=== PATIENT | female | born 1975 | race Caucasian/White ===

== ENCOUNTER 2018-10-23 08:25 | Inpatient (IN) | payer OTHER ==
[2018-10-22 09:35] LABS: BASOPHILS 0.3 % (0-2); EOSINOPHILS 0.8 % (0-7); HEMATOCRIT 41.5 % (36.0-48.0); HEMOGLOBIN 14.1 g/dL (12-16); IMMATURE GRANULOCYTES 0.1 % (0-5); LYMPHOCYTES 19.4 % (15-50); MCH 29.7 pg (26.0-34.0); MCV 87.4 fL (80.0-100.0); MEAN PLATELET VOLUME 10.8 fL (7.4-10.4); MONOCYTES 7.7 % (2-11); NEUTROPHILS 71.7 % (40-80); PLATELET COUNT 361 10x3/uL (130-400); RBC 4.75 10x6/uL (4.00-5.40); RDW 13.9 % (11.5-14.5); WBC 10.1 10x3/uL (4.8-10.8)
[2018-10-22 10:01] LABS: CALC OSMOLALITY 280 mosm/kg (275-300); CALCIUM 8.6 mg/dL (8.5-10.1); CARBON DIOXIDE 29.6 mmol/L (21.0-32.0); CHLORIDE - SERUM 103 mmol/L (98-107); CREATININE - SERUM 0.7 mg/dL (0.6-1.3); GLUCOSE 92 mg/dL (74-106); POTASSIUM - SERUM 4.1 mmol/L (3.5-5.1); SODIUM 141 mmol/L (136-145); UREA NITROGEN 13 mg/dL (7-18); eGFR NON AFRICAN AMERICAN > 90 mL/min (90-120)
[~2018-10-23] VITALS: Ht 157.5 cm; Wt 102.3 kg
[~2018-10-23 08:25] MED LIST: CARBINOXAMINE MALEAT PO; CELEXA20 MG PO; NORVASC10 MG PO
[2018-10-23 09:24] VITALS: BP 129/80; BMI 41.8
[2018-10-23 10:12] LABS: HCG URINE NEGATIVE (NEGATIVE)
--- NOTE | 2018-10-23 17:40 | NUR ---
[address] DR. RUT MEJIA.
--- NOTE | 2018-10-23 17:50 | NUR ---
1750 PERCOCET 10MG GIVEN FOR PAIN. PT STATES SHE HAS TAKEN THIS BEFORE SHE "USED TO TAKE THIS TO CONTROL HER CRAMPS".
--- NOTE | 2018-10-23 19:57 | NUR ---
1950 PT STILL SITTING ON TOILET, STATES HAS AN URGE BUT NOT ABLE TO VOID YET.
[2018-10-23 20:56] VITALS: BP 153/74
--- NOTE | 2018-10-23 20:56 | NUR ---
RECEIVED PT PER PT BED, PT STANDS AND TRANSITIONS SELF TO PT BED, PULSE OX 96% WITH PT ENCOURAGED TO TAKE DEEP BREATHS, SKIN WARM DRY, COLOR WNL, RESP EVEN AND UNLABORED, LUNGS CTAB, HEART RRR, ABD SOFT BUT TENDER, DENIES FLATUS, HYPOACTIVE BOWEL SOUNDS X4 QUADRANTS, NO VAGINAL BLEEDING NOTED, INCISIONS TO RIGHT ABD, LEFT ABD, AND UMBILICAL INCISIONS CONVERED WITH 1X1 ADHESIVE DRESSING, NO DRAINAGE NOTED, LOW TRANSVERSE INCISION INTACT WITH OCCLUSIVE WHITE DRESSING OLD DRAINAGE NOTED AND MARKED WITH PEN, PT UNABLE TO VOID AT THIS TIME, ADMIT ASSESSMENT INITIATED, CORREA FREELY, NEGATIVE [place]'S SIGN, NO EDEMA NOTED TO EXTREMITIES, PEDAL PULSES 2+/= B. IV TO RIGHT UPPER FA PATENT AND SET TO IVAC PUMP INFUSING LR AT 125ML/HR. LEMON NULATO SODA PROVIDED UPON REQUEST. CALL LIGHT/ROOM/TV/UNIT ORIENATION PROVIDED, QUESTIONS ANSWERED. CONTINUE TO MONITOR.
[2018-10-23 21:05] VITALS: BP 153/74; Ht 157.5 cm; Wt 102.3 kg
[2018-10-23] MEDS ORDERED: MULTI-DAY VITAM1 TAB PO (21:05)
--- NOTE | 2018-10-23 21:35 | NUR ---
PT UP TO BR PER ISAIAS PEREIRA RN
--- NOTE | 2018-10-23 21:44 | NUR ---
THIS RN TO ROOM, PT UNABLE TO VOID AT THIS TIME, REQUESTS TO SIT ON COMMODE JUST A LITTLE BIT LONGER, TALKED TO PT OF THE POSSIBILITY OF HAVING TO DO AN IN/OUT CATH, PT STATES "I'M NOT DOING THAT", EXPLAINED TO PT THE REASON FOR IT, PT STILL REFUSES
--- NOTE | 2018-10-23 21:57 | NUR ---
THIS RN TO ROOM, PT STILL UNABLE TO VOID, I KNOW MORE ASKED HER ABOUT HER VOIDING, AND PT STATES "I AM NOT DOING A CATHETER!!", INFORMED PT THAT I WILL TALK TO DR BETTENCOURT, PT VERBALIZES UNDERSTANING, PT REQUESTS TO AMB FOR A FEW MINUTES, REPORTS BINDER IS ON
--- NOTE | 2018-10-23 22:00 | NUR ---
DR BETTENCOURT ON UNIT, REPORT TO HER THAT PT IS UNABLE TO VOID, DR BETTENCOURT WRITES ORDERS FOR LASIX
--- NOTE | 2018-10-23 22:02 | NUR ---
PT INFORMED OF DR JUAN RAMON CALIX
--- NOTE | 2018-10-23 22:03 | NUR ---
PT AMB IN [place], GAIT STEADY, S/O AT SIDE
--- NOTE | 2018-10-23 22:12 | NUR ---
PT CONTINUES TO AMB IN [place], DR BETTENCOURT IN [place] AT THIS TIME, TALKS TO PT ABOUT THE POSSIBILITY OF DOING A CATHETER, PT VERBALIZES UNDERSTANDING, PT STILL UNDECIDED ABOUT HAVING IT DONE IF NEEDED
--- NOTE | 2018-10-23 22:20 | NUR ---
PT BACK IN ROOM, SITTING ON COMMODE, PT INST TO USE CALL LIGHT WHEN BACK TO BED AND THAT I WILL ADM MEDS AT THAT TIME, PT VERBALIZES UNDERSTANDING, DENIES NEEDS AT THIS TIME, S/O AT IN ROOM
[2018-10-23 22:32] VITALS: BP 144/78
--- NOTE | 2018-10-23 22:32 | NUR ---
PT BACK IN BED, ADM MEDS PER MD ORDERS, SEE EMAR, BP OBTAINED, FRESH H20 SERVED, DENIES FURTHER NEEDS, BED IN LOW POSITION, SIDE RAILS X 2, CALL LIGHT IN REACH, S/O AT BEDSIDE
--- NOTE | 2018-10-23 23:31 | NUR ---
PM ROUNDS MADE, PT UP IN BR AT THIS TIME, ICE PACK PROVIDED, PLACED ON BEDSIDE TABLE FOR PT, PT INST TO USE CALL LIGHT FOR ANY ASSISTANCE, PT VERBALIZES UNDERSTANDING, DENIES FURTHER NEEDS, BEDDING PROVIDED TO S/O
--- NOTE | 2018-10-24 00:05 | NUR ---
PT UNABLE TO VOID, SLOWLY POSITIONED TO RECUMBENT POSITION, EXPLAINED PROCEDURE TO PT, COOL CLOTH TO PT FOREHEAD WITH PT C/O ANXIETY WITH NEEDED IN AND OUT CATHETER. IN AND OUT CATHETER PROCEDURE PERFORMED WITH Rudolph SOMMERS RN ASSIST, EMPTIED 100ML CONCENTRATED YELLOW URINE FROM BLADDER, REPOSITIONED PT TO COMFORT, PROVIDED PT PO FLUIDS AND ENCOURAGED TO DRINK TOLERATED. CALL LIGHT IN EASY REACH. CONTINUE TO MONITOR.
--- NOTE | 2018-10-24 00:34 | NUR ---
PAGED DR BETTENCOURT TO REPORT 100ML URINE OUTPUT SINCE HODGE CATHETER DC'D AT 1730 IN OUTPATIENT RR.
--- NOTE | 2018-10-24 00:40 | NUR ---
RETURN CALL FROM DR BETTENCOURT, RELAYED 100ML TOTAL URINE OUTPUT AFTER IN AND OUT CATH AFTER SIX HOURS SINCE HODGE DC'D IN OUTPATIENT RECOVERY. NEW ORDER RECEIVED TO BOLUS 2L OF LR NOW, VERIFIED VIA TORB, NOTED, AND RELAYED TO PT. PT STATES UNDERSTANDING.
--- NOTE | 2018-10-24 02:01 | NUR ---
PT ROUSES TO VERBAL STIMULI ON ENTRY TO ROOM, IVAC ALARMING TO NOTIFY THIS RN OF 1ST LITER LR BOLUS COMPLETED, 2ND LITER LR HUNG AND INFUSING AT BOLUS RATE TO RIGHT FA VIA IVAC PUMP. BENADRYL 50MG SIVP ADMINISTERED TO RIGHT FA PER MD ORDERS. PT CALL LIGHT IN EASY REACH, SR UP X2, BED IN LOW POSITION, ICE PACK TO PT FOREHEAD PER REQUEST, NO OTHER NEEDS VOICED AT THIS TIME. CONTINUE TO MONITOR. PT RATES PAIN 6 OF 10 AT THIS TIME, NOTIFIED PT THAT PAIN MED CAN BE ADMINISTERED WHEN NEEDED, PT STATES WILL USE CALL LIGHT TO REQUEST IF AND WHEN NEEDED.
--- NOTE | 2018-10-24 02:24 | NUR ---
PT USING CALL LIGHT TO REQUEST PAIN MED, RATES PAIN 7 OF 10. PERCOCET 1 TAB PO GIVEN WITH SIPS WATER. NO OTHER NEEDS VOICED AT THIS TIME, CALL LIGHT IN EASY REACH, RESP EVEN AND UNLABORED. CONTINUE TO MONITOR.
[2018-10-24 03:12] VITALS: BP 132/76
--- NOTE | 2018-10-24 03:12 | NUR ---
PAIN REASSESSMENT COMPLETED, PT RATES PAIN A 4 OF 10 NOW ON NUMERIC PAIN SCALE, VSS, AFEBRILE, SR UP X2, BED IN LOW POSITION, HOB ELEVATED 30 DEGREES, BRAKES LOCKED, CALL LIGHT IN EASY REACH, RESP EVEN AND UNLABORED, CONTINUE TO MONITOR.
--- NOTE | 2018-10-24 05:14 | NUR ---
ROUNDS COMPLETED, PT EYES CLOSED, RESP EVEN AND UNLABORED, NAD NOTED. CALL LIGHT IN EASY REACH, SIDE RAILS UP X2, BED IN LOW POSITION, CONTINUE TO MONITOR.
--- NOTE | 2018-10-24 06:37 | NUR ---
pt assisted oob to br to attempt to void, unable to void at this time. states "i really don't feel like i need to pee very bad and i had to go all the time before my surgery. i think i may just be dehydrated. " assisted back to bed positioned to comfort. will monitor. call light in easy reach. cup of water provided to pt and encouraged to increase po intake. states understanding.
--- NOTE | 2018-10-24 06:42 | NUR ---
PT C/O PAIN 5 OF 10 ON NUMERIC PAIN SCALE, PERCOCET GIVEN PER MD ORDERS. PT REPORTS NAUSEA REQUESTS MED FOR NAUSEA. WILL PROVIDE.
--- NOTE | 2018-10-24 06:45 | NUR ---
PT GIVEN PHENERGAN 25MG SIVP DILUTED IN 10 ML NS. EMESIS BAG PROVIDED TO PT, TOLERATING SIPS LIQUIDS AT THIS TIME. CALL LIGHT IN EASY REACH. PT SITTING ON SIDE OF BED PER PT REQUEST. CONTINUE TO MONITOR.
--- NOTE | 2018-10-24 07:20 | NUR ---
SBAR HAND OFF RECEIVED FROM LUCY ESPARZA AT 0700. PATIENT SITTING ERECT IN BED. O2 SAT 95% ON ROOM AIR ONLY AFTER PATIENT TAKING DEEPER BREATHS AND COUGHING. NO RESP DISTRESS NOTED BUT PATIENT STATES SHE CANNOT TAKE A DEEP BREATH SINCE SURGERY. INSTRUCTED TO BREATHE DEEP AND COUGH EVERY HR AND TO SIT IN CHAIR FOR MEAL THEN UP TO WALK 15 MIN AFTER EACH MEAL. INSTRUCTED TO TRY AND VOID AFTER BREAKFAST. DENIES PASSAGE OF GAS RECTALLY. INSTRUCTED TO STICK TO LIQUID DIET UNTIL GAS PASSED RECTALLY. ALL 5 INCISIONS ABD WITH DSG CDI. LOWER ABD TRANSVERSE SURGICAL DSG INTACT WITH DRAINAGE PREVIOUSLY MARKED AND WITH NO NEW DRAINAGE NOTED AT THIS TIME. COLOR PINK. SKIN WARM DRY. IV FLUIDS DC'D; NOT SALINE LOCKED YET.
--- NOTE | 2018-10-24 07:30 | NUR ---
STATES SHE IS UNABLE TO VOID. DR BETTENCOURT NOTIFIED OF SAME. ORDER RECEIVED TO PLACE HODGE AND LEAVE IN THEN REPORT OUTPUT.
[2018-10-24 07:50] VITALS: BP 134/81
--- NOTE | 2018-10-24 08:30 | NUR ---
IV HEPLOCKED; FLUSHED EASILY. NO SIGNS OF COMPLICATIONS AT INSERTION SITE. ANGELES WELL.
--- NOTE | 2018-10-24 08:35 | NUR ---
16 fr liang cath inserted per sterile technique noting immediate return of pale yellow urine with rare flecks reddish brown; 200ml; secured with device after skin prep applied to right thigh. rome well
--- NOTE | 2018-10-24 09:15 | NUR ---
200 ML URINE OUTPUT REPORTED TO DR BETTENCOURT. PATIENT WALKING IN [place]
--- NOTE | 2018-10-24 10:30 | NUR ---
TRANSFERRED TO ROOM 1219 PER PEDIS. ANGELES WELL WITH NO SHORTNESS OF BREATH. STILL STAING SHE CANNOT TAKE DEEP BREATH THOUGH. SKIN WARM DRY AND PINK. STATES SHE WILL SIT UP IN CHAIR.
[2018-10-24 10:51] LABS: HEMOGLOBIN 13.5 g/dL (12-16); MCH 29.6 pg (26.0-34.0); MCHC 33.8 g/dL (31.0-37.0); MCV 87.7 fL (80.0-100.0); MEAN PLATELET VOLUME 11.3 fL (7.4-10.4); PLATELET COUNT 398 10x3/uL (130-400); RBC 4.56 10x6/uL (4.00-5.40); RDW 14.1 % (11.5-14.5); WBC 24.7 10x3/uL (4.8-10.8)
[2018-10-24 10:55] LABS: ANION GAP 15.2 mmol/L (8-16); CALCIUM 8.3 mg/dL (8.5-10.1); CARBON DIOXIDE 22.9 mmol/L (21.0-32.0); CREATININE - SERUM 2.2 mg/dL (0.6-1.3); POTASSIUM - SERUM 4.1 mmol/L (3.5-5.1)
[2018-10-24 12:00] VITALS: BP 131/78
--- NOTE | 2018-10-24 12:00 | NUR ---
RETURNED TO BED. UOP 900ML FOR LAST 1.5 HR O2 SAT 90% ON ROOM AIR. DR BETTENCOURT NOTIFIED OF SAME.
--- NOTE | 2018-10-24 12:00 | NUR ---
IBUPROFEN WAS NOT GIVEN AT THIS TIME. IBUPROFEN WAS GIVEN AT 0830 ONLY.
--- NOTE | 2018-10-24 12:15 | NUR ---
RT HERE TO START O2 FOR O2 SAT 90% ON ROOM AIR. O2 STARTED AT 2L/M PER NASAL CANNULA. O2 SAT BATSHEVA TO 93%. AT BEDSIDE.
--- NOTE | 2018-10-24 12:20 | NUR ---
US TECH HERE TO START IMAGING. REMAINS STALBE.
--- NOTE | 2018-10-24 12:30 | NUR ---
DR BETTENCOURT TO BEDSIDE AND STATES TO DO ULTRASOUNDS NOW RATHER THAN LATER. ULTRASOUND NOTIFIED OF SAME AND STATES PATIENT NEEDS TO DRINK 1200ML WATER BEFORE TEST. 1200ML WATER GIVEN TO PATIENT TO DRINK.
[2018-10-24 12:59] LABS: LYMPHOCYTES 12 % (15-50); MONOCYTES 8 % (2-11); NEUTROPHILS 74 % (40-80); PLATELET ESTIMATE NORMAL; ROULEAUX OCC
--- NOTE | 2018-10-24 13:03 | NUR ---
STATES IT IS HARD TO DRINK MORE FLUID, HAS DRANK APPROX 800ML. O2 SAT 90% ON ROOM AIR. NO SIGNS OF RESP DISTRESS. URINE OUTPUT CONT, ALREADY APPOX 400ML IN BAG
--- NOTE | 2018-10-24 13:45 | NUR ---
US TECH FINISHED. REMAINS STABLE. NPO NOW. NO SIGNS OF DISTRESS. O2 SAT REMAINS 93-94% ON 2L/MIN O2 PER NASAL CANNULA. AT BEDSIDE. HODGE PATENT WITH CLEAR ANDREW URINE.
--- NOTE | 2018-10-24 15:00 | NUR ---
SLEEPING AT INTERVALS. STATES SHE IS BREATHING A BIT EASIER AND ABLE TO TAKE SLIGHTLY DEEPER BREATHS. BREATH SOUNDS REMAIN DIMINISHED.
--- NOTE | 2018-10-24 16:00 | NUR ---
1600ML URINE OUTPUT SINCE NOON.
--- NOTE | 2018-10-24 16:36 | NUR ---
REMAINS STABLE WITH NO SIGNS OF DISTRESS. O2 CONT. SLEEPING AT INTERVALS.
--- NOTE | 2018-10-24 17:10 | NUR ---
STATES SHE FEELS LIKE SHE MAY HAVE A FEVER. TEMP 98.3 F, ORALLY. NO SIGNS OF RESP DISTRESS OR OTHER DISTRESS NOTED OR REPORTED.
--- NOTE | 2018-10-24 18:05 | NUR ---
DR BETTENCOURT AT BEDSIDE, REMOVED O2. O2 SAT 92-94% THEN DOWN TO 92% OVER 10 MIN THEN WITH ABD BINDER OFF, PER DR BETTENCOURT REQUEST, O2 SAT UP TO 95%. DR BETTENCOURT STATES TO LEAVE ABD BINDER OFF.
--- NOTE | 2018-10-24 18:30 | NUR ---
REQUESTING O2. O2 SAT 94% ON ROOM AIR. O2 WAS NOT RESUMMED BUT O2 SAT MONITOR LEFT INTACT. STATES SHE IS FEELING BETTER.
--- NOTE | 2018-10-24 19:06 | NUR ---
PT AMBULATORY ON UNIT DURING REPORT. STEADY GAIT NOTED. PAIN 2/10, DENIES NEED FOR INTERVENTION. WILL CONTINUE TO MONITOR AND ASSIST PRN.
[2018-10-24 19:25] LABS: ANION GAP 15.5 mmol/L (8-16); C-REACTIVE PROTEIN 5.4 mg/dL (0.0-0.9); CALCIUM 8.4 mg/dL (8.5-10.1); CARBON DIOXIDE 26.1 mmol/L (21.0-32.0); POTASSIUM - SERUM 3.6 mmol/L (3.5-5.1)
[2018-10-24 19:26] LABS: CREATININE - SERUM 1.1 mg/dL (0.6-1.3)
--- NOTE | 2018-10-24 20:13 | NUR ---
PT VISITING WITH FAMILY MEMBERS. DENIES NEEDS AT THIS TIME. WILL CONTINUE TO MONITOR AND ASSIST PRN.
[2018-10-24 21:29] VITALS: BP 110/62
--- NOTE | 2018-10-24 21:30 | NUR ---
SHIFT ASSESSMENT COMPLETED PER FLOW SHEET. VSS. PAIN 4-5/10, REFUSES PAIN MEDICATION AT THIS TIME. REQUESTS TO SANDWICH TRAY AND WILL CALL FOR PAIN MED PRN FOLLOWING EATING. BREATH SOUNDS CLEAR BUT DIMINISHED BILATERALLY. PT ENCOURAGED TO CONTINUE TO USE INCENTIVE SPIROMETER AND PERFORM COUGHING AND DEEP BREATHING EXERCISES, VERBALIZES UNDERSTANDING. BOWEL SOUNDS PRESENT AND ACTIVE X4, PT STATES THAT SHE HAS NOT PASSED FLATUS SINCE SURGERY, ENCOURAGED TO CONTINUE TO AMBULATE ON UNIT, VERBALIZES UNDERSTANDING. STERISTRIPS INTACT TO 4 ABD PUNCTURE SITE, CLEAN, DRY AND INTACT, NO DRAINAGE NOTED. LOWER TRANSVERSE ABD INCISION WELL APPROXIMATED WITH STERISTRIPS IN PLACE, NO DRAINAGE NOTED. PERIPAD PLACED BETWEEN ABD FOLD AND INCISION AND PT INSTRUCTED ON USE AND CHANGING FREQUENTLY, VERBALIZES UNDERSTANDING AND DENIES QUESTIONS. PT EDUCATED ON S/S OF INFECTION AND VERBALIZES UNDERSTANDING. NO EDEMA NOTED. HODGE DRAINING TO BEDSIDE SIDE DRAINAGE, 700 MLS EMPTIED. B/P 110/62, REFUSED NORVASC. PLAN OF CARE DISCUSSED WITH PT, VERBALIZES UNDERSTANDING AND DENIES QUESTIONS. BED IN LOW POSIITION WITH UPPER SIDE RAILS RAISED X2. CALL LIGHT AND PHONE WITHIN REACH. WILL CONTINUE TO MONITOR AND ASSIST PRN.
--- NOTE | 2018-10-24 22:12 | NUR ---
PAIN 5/10, REQUESTS PAIN MED. PERCOCET GIVEN PER ORDER. DENIES ADDITIONAL NEEDS. ICE WATER PROVIDED. FALL PRECAUTIONS REINFORCED WITH PT, VERBALIZES UNDERSTANDING AND DENIES QUESTIONS. BED IN LOW POSITION WITH UPPER SIDE RAILS RAISED X2. CALL LIGHT AND PHONE WITHIN REACH. WILL CONTINUE TO MONITOR AND ASSIST PRN.
--- NOTE | 2018-10-24 22:50 | NUR ---
PAIN REASSESSMENT COMPLETED. PAIN 2, DENIES NEED FOR ADDITIONAL INTERVENTION. STATES THAT SHE IS GOING TO REST AT THIS TIME. BED IN LOW POSITION WITH UPPER SIDE RAILS RAISED X2. CALL LIGHT AND PHONE WITHIN REACH. WILL CONTINUE TO MONITOR AND ASSIST PRN.
[2018-10-25 00:23] VITALS: BP 122/63
--- NOTE | 2018-10-25 00:28 | NUR ---
C/O "PRESSURE IN MY BLADDER." NO URINE NOTED IN HODGE. PT STATES THAT SHE FEELS URGE TO VOID. HODGE REPOSITIONED WITH RETURN OF 250 MLS YELLOW URINE. VERBALIZED RELIEF OF PRESSURE. STATES THAT SHE JUST FEELS NEED TO PASS FLATUS. ENCOURAGED TO AMBULATE, VERBALIZES UNDERSTANDING.
--- NOTE | 2018-10-25 00:50 | NUR ---
DR. BETTENCOURT CALLS UNIT, REQUESTS TO BE TRANSFERRED TO PT ROOM PHONE IF AWAKE, PT AWAKE, CALL TRANSFERED.
--- NOTE | 2018-10-25 01:01 | NUR ---
YUAN, HOUSE SUPERVISIOR NOTIFIED OF NEW ORDERS REC'D FOR ANBX AND THAT THEY WERE NOT PRESENT ON FLOOR. YUAN WITH BRING MEDS TO UNIT OR CALL RN TO COME THEM WHEN.
--- NOTE | 2018-10-25 01:52 | NUR ---
PT AMBULATORY ON UNIT. STEADY GAIT NOTED, STATES SHE IS "FEELING GAS PAINS AND JUST WANTS TO WALK FOR A MINUTE." DENIES NEEDS CURRENTLY. YUAN, CARRIER OPERATOR ON UNIT WITH ORDERED ANTIBIOTICS.
--- NOTE | 2018-10-25 02:25 | NUR ---
MEREM INFUSION BEGAN. PIV FLUSHES WITHOUT DIFFICULTY, NO S/S OF INFILTRATION NOTED. LASIX GIVEN PER ORDER. PT EDUCATED ON MEDS, DENIES QUESTIONS. BED IN LOW POSITION WITH UPPER SIDE RAILS RAISED X2. CALL LIGHT AND PHONE WITHIN REACH. WILL CONTINUE TO MONITOR AND ASSIST PRN.
--- NOTE | 2018-10-25 03:09 | NUR ---
MEREM INFUSION COMPLETED. LINE FLUSHES WITHOUT DIFFICULTY. VANC HUNG PER ORDER. PT EDUCATED ON MED, VERBALIZES UNDERSTANDING AND DENIES QUESTIONS. DENIES NEEDS AT THIS TIME. BED IN LOW POSITION WITH UPPER SIDE RAILS RAISED X2. CALL LIGHT AND PHONE WITHIN REACH. HODGE CONTINUING TO DRAIN TO BEDSIDE DRAINAGE.
[2018-10-25 05:20] VITALS: BP 124/66
--- NOTE | 2018-10-25 05:20 | NUR ---
ROUNDS MADE. VANC INFUSION COMPLETE. TOLERATED WELL. PIV SL. VSS. I&O DONE. OFFERED SWABS FOR ORAL CARE, PT REFUSED. DENIES NEEDS AT THIS TIME. BED IN LOW POSITION WITH UPPER SIDE RAILS RAISED X2. CALL LIGHT AND PHONE WITHIN REACH. WILL CONTINUE TO MONITOR AND ASSIST PRN.
--- NOTE | 2018-10-25 06:11 | NUR ---
ROUNDS MADE. PT LAYING ON LEFT SIDE RESTING WITH EYES CLOSED. RESPIRATIONS REGULAR AND UNLABORED, NO S/S OF DISTRESS NOTED. BED IN LOW POSITION WITH UPPER SIDE RAILS RAISED X2. CALL LIGHT AND PHONE WITHIN REACH.
--- NOTE | 2018-10-25 07:25 | NUR ---
PT UP TO BATHROOM -STATES HAVING BM.
[2018-10-25 07:49] VITALS: BP 122/73
--- NOTE | 2018-10-25 08:00 | NUR ---
SALINE LOCK REMOVED PER Rudolph BRANDON RN.
[2018-10-25 08:25] LABS: BASOPHILS 0.2 % (0-2); EOSINOPHILS 0.3 % (0-7); HEMOGLOBIN 11.7 g/dL (12-16); IMMATURE GRANULOCYTES 0.1 % (0-5); LYMPHOCYTES 16.9 % (15-50); MCHC 32.5 g/dL (31.0-37.0); MCV 89.1 fL (80.0-100.0); MONOCYTES 10.1 % (2-11); NEUTROPHILS 72.4 % (40-80); PLATELET COUNT 329 10x3/uL (130-400); RBC 4.04 10x6/uL (4.00-5.40); RDW 14.3 % (11.5-14.5)
[2018-10-25 08:31] LABS: WBC 13.3 10x3/uL (4.8-10.8)
[2018-10-25 08:39] LABS: ANION GAP 13.8 mmol/L (8-16); CALCIUM 7.7 mg/dL (8.5-10.1); CARBON DIOXIDE 27.6 mmol/L (21.0-32.0); CREATININE - SERUM 0.9 mg/dL (0.6-1.3); POTASSIUM - SERUM 3.4 mmol/L (3.5-5.1)
--- NOTE | 2018-10-25 09:05 | NUR ---
PT RINGS CALL LIGHT- REQUESTING MOTRIN FOR SORENESS AT INCISIONS. REQUESTING TO WAIT ON IV RESTART UNTIL "LAST MINUTE"
--- NOTE | 2018-10-25 09:11 | NUR ---
REPORT OF PT REQUEST TO DR BETTENCOURT- NEW ORDERS RECEIVED.
--- NOTE | 2018-10-25 11:00 | NUR ---
IN RROM TO RESTART IV. PT REQUESTING TO GET UP TO BATHROOM FIRST. ALSO REQUESTING TO SHOWER.
--- NOTE | 2018-10-25 11:46 | NUR ---
SHOWER DONE. RETURNED TO BED.
--- NOTE | 2018-10-25 11:56 | NUR ---
IV RESITED RT WRIST USING 20G CATH WITHOUT DIFFICULTY. FLUSHED WITH NS.
--- NOTE | 2018-10-25 12:11 | NUR ---
TALKING WITH VISITOR. NO REQUESTS.
--- NOTE | 2018-10-25 12:55 | NUR ---
PT RINGS CALL LIGHT REPORTING SHE IS HAVING "TERRIBLE" GAS PAINS. THIS RN TO BEDSIDE FOR ASSESSMENT. PT REPORTS SHE WAS FEELING FINE, BUT NOW AFTER RECEIVING LASIX AND HER PROBIOTIC, SHE FEELS DIZZY AND "CRAPPY".
[2018-10-25 13:02] VITALS: BP 132/73
--- NOTE | 2018-10-25 13:07 | NUR ---
PT STES THAT FEELS SOME GAS PAIN AND HAS HEADACHE. STATES IS TRYING TO DECIDE IF WANTS PAIN MEDICATION.
--- NOTE | 2018-10-25 13:20 | NUR ---
this rn to bedside to admin prn pain emdication percocet 5/325mg one tab per pt requeset for pain she rates 6/10 and describes as cramping pain. pt also takes her home medcarbinoxamin 4 mg for sinus headache. medication ok'd per dr cerna. sips of water allowe. pt denies further needs at this time. approx 350ml urine noted in urometer at this t5ime.
--- NOTE | 2018-10-25 15:00 | NUR ---
REMAINS STABLE IN BED WITH NO SIGNS OF RESP DISTRESS OR OTHER DISTRESS NOTED. IV AND HODGE PATENT.
--- NOTE | 2018-10-25 16:20 | NUR ---
up to BATHROOM FOR BM, REPORTEDLY LIQUID BUT PATIENT HAD ALREADY FLUSHED WHEN NURSE ARRIVED. PATIENT HAD PUT RESTROOM CALL CANO ON TO GET ASSISTANCE TO PERFORM POST BM CARE. PATIENT CLEANSED WITH PERICLEANSE FOAM AND WASHCLOTH THEN ASSISTED BACK TO BED. 900ML CLEAR ANDREW URINE EMPTIED FROM CATHETER. NO SIGNS OF RESP DISTRESS OR OTHER DISTRESS NOTED OR REPORTED. 4X4 GAUZE ON FLOOR NOTED CLEAN AND DRY; PATIENT STATING THAT ABD INCISION DRAINING EARLIER BUT NOT NOW. SKIN WARM DRY AND PINK.
--- NOTE | 2018-10-25 18:16 | NUR ---
PT OFF UNIT VIA W/C TO CT W/[place]
--- NOTE | 2018-10-25 20:03 | NUR ---
ROUNDS MADE. PT CONVERSING WITH VISITOR AT BEDSIDE. PAIN 11/17, DENIES NEED FOR ADDITIONAL INTERVENTION AT THIS TIME. DENIES NEEDS. BED IN LOW POSITION WITH UPPER SIDE RAILS RAISED X2. CALL LIGHT AND PHONE WITHIN REACH. ICE WATER PROVIDED.
[2018-10-25 20:51] VITALS: BP 109/53
--- NOTE | 2018-10-25 20:51 | NUR ---
SHIFT ASSESSMENT COMPLETED. PAIN REMAINS 3/10, ABD SORENESS, DENIES NEED FOR INTERVENTION AT THIS TIME. VSS. HODGE CONTINUING TO DRAIN TO BEDSIDE DRAINAGE, 950 MLS YELLOW URINE EMPTIED FROM HODGE. BREATH SOUNDS CLEAR BUT DIMINISHED THROUGHOUT ALL LUNG FEILDS. PT REPORTS THAT SHE HAS HAD 2 BM'S TODAY BUT STILL DOESN'T FEEL LIKE SHE IS PASSING FLATUS, REPORTS THAT BM'S HAVE BEEN LOOSE TO LIQUID CONSISTENCY. SL TO RIGHT WRIST NOTED, NO S/S OF INFILTRATION NOTE. 4 PUNCTURES NOTED TO ABD WITH STERI STRIPS IN PLACE. LOWER TRANSVERSE ABD INCISION WELL APPROXIMATED WITH STERISTRIPS INTACT. SCANT SEROSANGAIUOUS DRAINAGE NOTED ON PREVIOUS PAD THAT PT HAD PLACED BETWEEN FOLD. PAD REPLACED. BOWEL SOUNDS PRESENT AND ACTIVE X4. PT ENCOURAGED TO CONTINUE AMBULATING ON UNIT AND VERBALIZES UNDERSTANDING. PLAN OF CARE REVIEWED WITH PT, DENIES QUESTIONS. BED IN LOW POSITION WITH UPPER SIDE RAILS RAISED X2. CALL LIGHT AND PHONE WITHIN REACH. WILL CONTINUE TO MONITOR AND ASSIST PRN.
--- NOTE | 2018-10-25 22:03 | NUR ---
ROUNDS MADE. PT ON PHONE. DENIES NEEDS AT THIS TIME. BED IN LOW POSITION WITH UPPER SIDE RAILS RAISED X2. CALL LIGHT AND PHONE WITHIN REACH. WILL CONTINUE TO MONITOR AND ASSIST PRN. ENCOURAGED PO FLUID INTAKE.
--- NOTE | 2018-10-25 23:08 | NUR ---
PAIN 4/10, REQUEST PAIN MEDICATION, PERCOCET GIVEN PER ORDER. ASSIST WITH POSITIONING TO LEFT SIDE. ICE WATER PROVIDED. PT DENIES ADDITIONAL NEEDS AT THIS TIME. BED IN LOW POSITION WITH UPPER SIDE RAILS RAISED X2. CALL LIGHT AND PHONE WITHIN REACH. HODGE CONTINUES TO DRAIN TO BEDSIDE DRAINAGE.
--- NOTE | 2018-10-26 00:03 | NUR ---
PAIN REASSESSMENT 09/19, AROUSED WHEN DOOR OPENED. ROOM TEMP DECREASED PER REQUEST. DENIES ADDITIONAL NEEDS. BED IN LOW POSITION WITH UPPER SIDE RAILS RAISED X2. CL AND PHONE WITHIN REACH. WILL CONTINUE TO MONITOR AND ASSIST PRN.
[2018-10-26 00:30] VITALS: BP 104/56
--- NOTE | 2018-10-26 00:30 | NUR ---
PT RESTING WITH EYES CLOSED, AROUSES TO SOFT VERBAL STIMULATION, VS OBTAINED, PT PLACED ON 02 AT 2L WHILE ASLEEP, PT DENIES NEEDS OR PAIN AT THIS TIME
--- NOTE | 2018-10-26 02:30 | NUR ---
MERREM INFUSION BEGAN. PT REPORTS THAT SHE "BROKE INTO A COLD SWEAT." LINEN CHANGE DONE PER REQUEST. PT CHANGED INTO OWN CLOTHES. I&O DONE. TEMP 97.9 ORAL.
[2018-10-26 04:00] VITALS: BP 112/72
--- NOTE | 2018-10-26 04:00 | NUR ---
PT AWAKE, WATCHING TV, VS OBTAINED, HODGE CATH EMPTIED, DENIES NEEDS OR PAIN AT THIS TIME
--- NOTE | 2018-10-26 06:01 | NUR ---
ROUNDS MADE. PT IN SEMI FOWLERS POSITION RESTING WITH EYES CLOSED. RESPIRATIONS REGULAR AND UNLABORED WITH NO S/S OF DISTRESS. BED IN LOW POSITION WITH UPPER SIDE RAILS RAISED X2. CALL LIGHT AND PHONE WITHIN REACH. WILL CONTINUE TO MONITOR AND ASSIST PRN.
--- NOTE | 2018-10-26 06:14 | NUR ---
CALLS VIA CL, REQUEST PAIN MEDS PAIN 02/17, MOTRIN AND PERCOCET GIVEN PER ORDER. C/O BACK PAIN. PT ASSISTED TO REPOSITION TO RIGHT SIDE. PILLOW PLACED FOR COMFORT AND SUPPORT BEHIND BACK. PIV SL. ICE WATER PROVIDED. BED IN LOW POSITION WITH UPPER SIDE RAILS RAISED X2. CL AND PHONE WITHIN REACH.
--- NOTE | 2018-10-26 08:30 | NUR ---
UP AND AMBULATING IN HALLWAY. NO REQUESTS.
[2018-10-26 09:16] VITALS: BP 116/64
--- NOTE | 2018-10-26 09:25 | NUR ---
ASSESSMENT DONE. VERBAL RESPONSES APPRO TO QUESTIONS. DENIES NEEDS -NO REQUESTS. SITTING IN BEDSIDE CHAIR.
[2018-10-26 09:57] LABS: BASOPHILS 0.3 % (0-2); EOSINOPHILS 2.1 % (0-7); HEMATOCRIT 37.3 % (36.0-48.0); HEMOGLOBIN 12.2 g/dL (12-16); IMMATURE GRANULOCYTES 0.2 % (0-5); LYMPHOCYTES 24.7 % (15-50); MCH 29.3 pg (26.0-34.0); MCHC 32.7 g/dL (31.0-37.0); MCV 89.4 fL (80.0-100.0); MEAN PLATELET VOLUME 11.1 fL (7.4-10.4); MONOCYTES 8.5 % (2-11); NEUTROPHILS 64.2 % (40-80); PLATELET COUNT 364 10x3/uL (130-400); RBC 4.17 10x6/uL (4.00-5.40); RDW 14.1 % (11.5-14.5)
[2018-10-26 10:00] LABS: WBC 9.9 10x3/uL (4.8-10.8)
[2018-10-26 10:07] LABS: CALC OSMOLALITY 277 mosm/kg (275-300); CALCIUM 7.9 mg/dL (8.5-10.1); CARBON DIOXIDE 27.2 mmol/L (21.0-32.0); CHLORIDE - SERUM 102 mmol/L (98-107); CREATININE - SERUM 0.7 mg/dL (0.6-1.3); GLUCOSE 124 mg/dL (74-106); POTASSIUM - SERUM 3.1 mmol/L (3.5-5.1); SODIUM 140 mmol/L (136-145); eGFR NON AFRICAN AMERICAN > 90 mL/min (90-120)
[2018-10-26 10:08] LABS: UREA NITROGEN 8 mg/dL (7-18)
--- NOTE | 2018-10-26 11:15 | NUR ---
DR BETTENCOURT IN ROOM TALKING WITH PT.
--- NOTE | 2018-10-26 11:31 | NUR ---
UP TO BATHROOM TO TRY TO VOID.
[2018-10-26] MEDS ORDERED: IBUPROFEN800 MG PO (12:20)
[2018-10-26] MEDS ORDERED: PERCOCET 5-3251 TAB PO (12:20)
--- NOTE | 2018-10-26 13:03 | NUR ---
UP TO BATHROOM- VOIDED BUT STATES THAT MISSED THE CONTAINER- NOTED SMALL AMT URINE IN CONTAINER.
--- NOTE | 2018-10-26 13:58 | NUR ---
Pain med given as seen on emar for complaint of abd pressure/cramps that she rates at 6/10. large ice water per request.
--- NOTE | 2018-10-26 14:14 | NUR ---
verbal and written discharge instructions gone over without questions. Provided with written scripts by Dr Gomes. Pt fitted for abd binder that she says fits "much better" than previous one. Saline lock removed from right wrist with cath intact. Pt called spouse to come pick her up. States she is going to bathroom again and will call when finished.
== END 2018-10-26 14:40 | disposition home or self-care (01) | DRG 743 ==
LOC: D.OPS 08:25 → D.LD 08:25 → D.PAN 11:00 → D.OPS 11:00 → D.LD 20:44 → D.WS 10-24 10:25 → D.OPS 10-24 18:16 → D.WS 10-24 18:17
PROVIDERS: ADMIT Obstetrics & Gynecology
PROC: 0UT94ZZ Resection of Uterus, Percutaneous Endoscopic Approach (ICD-10-PCS; principal; 2018-10-23 12:00)
PROC: 0UB74ZZ Excision of Bilateral Fallopian Tubes, Percutaneous Endoscopic Approach (ICD-10-PCS; 2018-10-23 12:00)
DX: N93.8 Other specified abnormal uterine and vaginal bleeding (principal); R33.8 Other retention of urine; E66.9 Obesity, unspecified; D25.9 Leiomyoma of uterus, unspecified; R14.0 Abdominal distension (gaseous)

== ENCOUNTER 2018-10-27 18:29 | Inpatient (IN) | payer OTHER ==
[~2018-10-27] VITALS: Ht 157.5 cm; Wt 103.4 kg
[~2018-10-27 18:29] MED LIST changes: +IBUPROFEN800 MG PO; +MULTI-DAY VITAM1 TAB PO; +PERCOCET 5-3251 TAB PO
[2018-10-27 19:10] LABS: BASOPHILS 0.2 % (0-2); EOSINOPHILS 1.4 % (0-7); HEMATOCRIT 39.5 % (36.0-48.0); HEMOGLOBIN 13.4 g/dL (12-16); IMMATURE GRANULOCYTES 0.2 % (0-5); LYMPHOCYTES 15.2 % (15-50); MCH 29.5 pg (26.0-34.0); MCHC 33.9 g/dL (31.0-37.0); MEAN PLATELET VOLUME 10.8 fL (7.4-10.4); MONOCYTES 8.9 % (2-11); NEUTROPHILS 74.1 % (40-80); RBC 4.55 10x6/uL (4.00-5.40); RDW 13.4 % (11.5-14.5)
[2018-10-27 19:11] LABS: MCV 86.8 fL (80.0-100.0); PLATELET COUNT 460 10x3/uL (130-400); WBC 16.2 10x3/uL (4.8-10.8)
[2018-10-27 19:20] VITALS: BP 177/102
[2018-10-27 19:22] LABS: ANION GAP 16.1 mmol/L (8-16); CALCIUM 9.8 mg/dL (8.5-10.1); CARBON DIOXIDE 23.6 mmol/L (21.0-32.0)
[2018-10-27 19:30] LABS: POTASSIUM - SERUM 3.7 mmol/L (3.5-5.1)
[2018-10-27 21:20] VITALS: BP 150/90
[2018-10-27 22:46] VITALS: BP 150/90; BMI 41.8
[2018-10-28 01:30] LABS: ANION GAP 11.4 mmol/L (8-16); CALCIUM 8.8 mg/dL (8.5-10.1); CARBON DIOXIDE 28.7 mmol/L (21.0-32.0); POTASSIUM - SERUM 4.1 mmol/L (3.5-5.1)
[2018-10-28 01:35] LABS: CREATININE - SERUM 2.2 mg/dL (0.6-1.3)
[2018-10-28 02:06] VITALS: BP 107/56
[2018-10-28 06:00] VITALS: BP 121/76
[2018-10-28 07:02] LABS: ANION GAP 15.2 mmol/L (8-16); CALCIUM 8.3 mg/dL (8.5-10.1); MAGNESIUM - SERUM 1.9 mg/dL (1.8-2.4); POTASSIUM - SERUM 4.2 mmol/L (3.5-5.1)
[2018-10-28 07:07] LABS: CREATININE - SERUM 1.4 mg/dL (0.6-1.3)
[2018-10-28 08:07] VITALS: BP 103/52
[2018-10-28 08:15] LABS: BASOPHILS 0.2 % (0-2); EOSINOPHILS 0.9 % (0-7); HEMATOCRIT 36.5 % (36.0-48.0); HEMOGLOBIN 12.1 g/dL (12-16); IMMATURE GRANULOCYTES 0.3 % (0-5); LYMPHOCYTES 13.6 % (15-50); MCH 29.2 pg (26.0-34.0); MCHC 33.2 g/dL (31.0-37.0); MEAN PLATELET VOLUME 11.1 fL (7.4-10.4); MONOCYTES 9.9 % (2-11); NEUTROPHILS 75.1 % (40-80); PLATELET COUNT 414 10x3/uL (130-400); RBC 4.15 10x6/uL (4.00-5.40); RDW 13.8 % (11.5-14.5); WBC 12.9 10x3/uL (4.8-10.8)
[2018-10-28 12:16] VITALS: BP 124/73; BMI 41.8
[2018-10-28 13:37] VITALS: Ht 157.5 cm; Wt 103.4 kg
[2018-10-28 13:46] LABS: ANION GAP 13.9 mmol/L (8-16); CALCIUM 8.2 mg/dL (8.5-10.1); CREATININE - SERUM 1.1 mg/dL (0.6-1.3); POTASSIUM - SERUM 3.9 mmol/L (3.5-5.1)
[2018-10-28 17:56] VITALS: BP 119/60
[2018-10-28 20:04] LABS: MAGNESIUM - SERUM 1.8 mg/dL (1.8-2.4); PHOSPHOROUS 2.8 mg/dL (2.5-4.9)
[2018-10-28 20:35] VITALS: BP 137/68
[2018-10-29 00:53] VITALS: BP 123/59
[2018-10-29 04:09] VITALS: BP 140/75
[2018-10-29 07:07] LABS: BASOPHILS 0.4 % (0-2); EOSINOPHILS 2.4 % (0-7); HEMATOCRIT 34.3 % (36.0-48.0); HEMOGLOBIN 11.3 g/dL (12-16); IMMATURE GRANULOCYTES 0.2 % (0-5); LYMPHOCYTES 19.6 % (15-50); MCH 29.2 pg (26.0-34.0); MCHC 32.9 g/dL (31.0-37.0); MCV 88.6 fL (80.0-100.0); MEAN PLATELET VOLUME 11.1 fL (7.4-10.4); MONOCYTES 10.8 % (2-11); NEUTROPHILS 66.6 % (40-80); PLATELET COUNT 423 10x3/uL (130-400); RBC 3.87 10x6/uL (4.00-5.40); RDW 13.7 % (11.5-14.5); WBC 9.5 10x3/uL (4.8-10.8)
[2018-10-29 07:16] LABS: ANION GAP 11.2 mmol/L (8-16); CALCIUM 7.7 mg/dL (8.5-10.1); CARBON DIOXIDE 28.7 mmol/L (21.0-32.0); CREATININE - SERUM 0.9 mg/dL (0.6-1.3); MAGNESIUM - SERUM 1.6 mg/dL (1.8-2.4)
[2018-10-29 07:26] LABS: POTASSIUM - SERUM 2.9 mmol/L (3.5-5.1)
[2018-10-29 09:45] VITALS: BP 120/67
[2018-10-29 20:20] VITALS: BP 131/75
[2018-10-29 23:49] VITALS: BP 135/86
[2018-10-30] VITALS (7 sets, daily range): BP systolic 119–145; BP diastolic 57–81
[2018-10-30 07:06] LABS: BASOPHILS 0.3 % (0-2); EOSINOPHILS 2.8 % (0-7); HEMATOCRIT 34.6 % (36.0-48.0); HEMOGLOBIN 11.2 g/dL (12-16); IMMATURE GRANULOCYTES 0.3 % (0-5); LYMPHOCYTES 23.9 % (15-50); MCH 28.5 pg (26.0-34.0); MCHC 32.4 g/dL (31.0-37.0); MEAN PLATELET VOLUME 10.9 fL (7.4-10.4); MONOCYTES 11.3 % (2-11); NEUTROPHILS 61.4 % (40-80); PLATELET COUNT 432 10x3/uL (130-400); RBC 3.93 10x6/uL (4.00-5.40); RDW 13.3 % (11.5-14.5); WBC 7.2 10x3/uL (4.8-10.8)
[2018-10-30 07:17] LABS: CALCIUM 8.2 mg/dL (8.5-10.1); CARBON DIOXIDE 28.2 mmol/L (21.0-32.0); CHLORIDE - SERUM 106 mmol/L (98-107); SODIUM 142 mmol/L (136-145)
[2018-10-30 07:18] LABS: CALC OSMOLALITY 279 mosm/kg (275-300); CREATININE - SERUM 0.6 mg/dL (0.6-1.3); GLUCOSE 88 mg/dL (74-106); POTASSIUM - SERUM 3.7 mmol/L (3.5-5.1); UREA NITROGEN 7 mg/dL (7-18); eGFR NON AFRICAN AMERICAN > 90 mL/min (90-120)
[2018-10-31 04:03] VITALS: BP 117/56
[2018-10-31 07:12] LABS: CALCIUM 8.6 mg/dL (8.5-10.1); CARBON DIOXIDE 23.6 mmol/L (21.0-32.0); CHLORIDE - SERUM 101 mmol/L (98-107); MAGNESIUM - SERUM 1.9 mg/dL (1.8-2.4); POTASSIUM - SERUM 3.9 mmol/L (3.5-5.1); SODIUM 137 mmol/L (136-145); eGFR NON AFRICAN AMERICAN 83 mL/min (90-120)
[2018-10-31 07:16] LABS: CALC OSMOLALITY 274 mosm/kg (275-300); CREATININE - SERUM 0.8 mg/dL (0.6-1.3); GLUCOSE 139 mg/dL (74-106); UREA NITROGEN 9 mg/dL (7-18)
[2018-10-31 07:20] LABS: BASOPHILS 0.1 % (0-2); EOSINOPHILS 0 % (0-7); HEMATOCRIT 33.6 % (36.0-48.0); IMMATURE GRANULOCYTES 0.2 % (0-5); LYMPHOCYTES 13.9 % (15-50); MCH 28.8 pg (26.0-34.0); MCHC 32.7 g/dL (31.0-37.0); MEAN PLATELET VOLUME 11.1 fL (7.4-10.4); MONOCYTES 8.1 % (2-11); NEUTROPHILS 77.7 % (40-80); PLATELET COUNT 481 10x3/uL (130-400); RBC 3.82 10x6/uL (4.00-5.40); RDW 13.3 % (11.5-14.5)
[2018-10-31 07:40] LABS: WBC 9.8 10x3/uL (4.8-10.8)
[2018-10-31 08:55] VITALS: BP 132/70
[2018-10-31] MEDS ORDERED: SULFAMETHOXAZOL1 TA3 PO (14:56)
[2018-10-31 16:00] VITALS: BP 128/74
== END 2018-10-31 18:00 | disposition home or self-care (01) | DRG 908 ==
LOC: D.ER 18:29 → D.LD 18:39 → D.EDHOLD 18:39 → D.MS 18:39 → D.LD 10-28 11:01
PROVIDERS: ADMIT Obstetrics & Gynecology
PROC: 0TQB4ZZ Repair Bladder, Percutaneous Endoscopic Approach (ICD-10-PCS; principal; 2018-10-30 09:15)
DX: N99.71 Accidental puncture and laceration of a genitourinary system organ or structure during a genitourinary system procedure (principal); N17.9 Acute kidney failure, unspecified; Z68.41 Body mass index [BMI] 40.0-44.9, adult; R33.8 Other retention of urine; F32.9 Major depressive disorder, single episode, unspecified; F41.9 Anxiety disorder, unspecified; X58.XXXA Exposure to other specified factors, initial encounter; E66.9 Obesity, unspecified